=== PATIENT | female | born 1955 | race Caucasian/White ===

== ENCOUNTER → 2018-11-28 | Outpatient (CLI) | payer OTHER ==
--- NOTE | 2018-11-28 09:45 | BD ---
EXAMINATION TYPE: Axial Bone Density DATE OF EXAM: 11/28/2018 COMPARISON: NONE CLINICAL HISTORY: 63 YR OLD FEMALE....ICD-10 CODE: Z78.0 ASYMPTOMATIC MENOPAUSAL STATE Height: 67 Weight: 140 FRAX RISK QUESTIONS: Secondary Osteoporosis: YES 3. Menopause before 45: YES AT 42 Current Tobacco Use: YES RISK FACTORS HISTORY OF: Active: YES Postmenopausal woman: YES AT AGE 42 MEDICATIONS: Additional Medications: REFLUX MEDS, VIT D 3, MULTIVITAMIN, CBD OIL Additional History: NOTHING ADDITIONAL TO NOTE HERE EXAM MEASUREMENTS: Bone mineral densitometry was performed using the [employer] System. Bone mineral density as measured about the Lumbar spine is: ----- L1-L4(G/cm2): 1.071 T Score Values are as follows: ----- L1: -0.7 ----- L2: -1.2 ----- L3: -1.0 ----- L4: -0.9 ----- L1-L4: -0.9 Bone mineral density FIRST BONE DENSITY SCAN.....BASELINE STUDY Bone mineral density about the R hip (g/cm2): 0.828 Bone mineral density about the L hip (g/cm2): 0.839 T Score values are as follows: -----R Neck: -2.2 -----L Neck: -2.1 -----R Total: -1.4 -----L Total: -1.3 Bone mineral density FIRST BONE DENSITY SCAN.....BASELINE STUDY FRAX%s: THERE IS A 11.1% CHANCE FOR A MAJOR OSTEOPOROTIC FX AND A 3.0% FOR HIP.....PROBABILITY OF FX IN 10 YRS TIME IMPRESSION: Osteopenia (T Score between -2.5 and -1) at femoral neck level in both hips. There is slightly increased risk of fracture and the patient may be considered for treatment. Re-Screen 2-5 years. NOTE: T-SCORE=SD OF THE YOUNG ADULT MEAN.
--- NOTE | 2018-11-29 10:51 | MM ---
Reason for exam: screening (asymptomatic). Last mammogram was performed 4 years ago. History: Patient is postmenopausal. Physical Findings: A clinical breast exam by your physician is recommended on an annual basis and results should be correlated with mammographic findings. MG 3D Screening Mammo W/Cad Bilateral CC and MLO view(s) were taken. Prior study comparison: November 23, 2014, bilateral MG screening mammo w CAD. October 02, 2013, bilateral digital screening mammo w/CAD. The breast tissue is heterogeneously dense. This may lower the sensitivity of mammography. Finding #1: There is a 6 mm equal density (isodense), oval mass in the subareolar position of the right breast. Finding #2: There are typically benign calcifications in the right breast. ASSESSMENT: Incomplete: need additional imaging evaluation, BI-RAD 0 RECOMMENDATION: Special view mammogram of the right breast. If lesion persists on supplemental views, image directed ultrasound is recommended. [facility] will attempt to contact patient to return for supplemental views and ultrasound if indicated.
== END | disposition home or self-care (01) ==
LOC: RADMAMWWP 07:56
PROVIDERS: ATTEND Family Medicine
DX: Z12.31 Encounter for screening mammogram for malignant neoplasm of breast (principal); M85.852 Other specified disorders of bone density and structure, left thigh; M85.851 Other specified disorders of bone density and structure, right thigh; Z78.0 Asymptomatic menopausal state
CPT/HCPCS: 77063; 77067; 77080

== ENCOUNTER → 2018-12-11 | Outpatient (CLI) | payer OTHER ==
--- NOTE | 2018-12-11 10:08 | MM ---
Reason for exam: additional evaluation requested from abnormal screening. Last mammogram was performed less than 1 month ago. History: Patient is postmenopausal. Physical Findings: Nurse did not find any significant physical abnormalities on exam. MG 3D Work Up W/Cad RT Spot compression CC, spot compression MLO, and LM view(s) were taken of the right breast. Prior study comparison: November 28, 2018, bilateral MG 3d screening mammo w/cad. November 23, 2014, bilateral MG screening mammo w CAD. The breast tissue is heterogeneously dense. This may lower the sensitivity of mammography. Right asymmetry resolves on additional views and appears as fibroglandular tissue. These results were verbally communicated with the patient and result sheet given to the patient on 12/11/18. ASSESSMENT: Negative, BI-RAD 1 RECOMMENDATION: Return to routine screening mammogram schedule for both breasts.
== END ==
LOC: RADMAMWWP 08:45
PROVIDERS: ATTEND Family Medicine
DX: R92.8 Other abnormal and inconclusive findings on diagnostic imaging of breast (principal)
CPT/HCPCS: 77061; 77065

== ENCOUNTER → 2019-03-04 | Outpatient (CLI) | payer OTHER ==
[2019-03-04 18:09] LABS: Gliadin AB IgA, Unit <0.2 U/mL
== END ==
LOC: LABWHC1 09:41
PROVIDERS: ATTEND Internal Medicine Gastroenterology
DX: K52.9 Noninfective gastroenteritis and colitis, unspecified (principal)
CPT/HCPCS: 36415; 83516; 83630; 87045; 87046; 87324; 87328; 87329

== ENCOUNTER → 2019-04-11 | Day surgery (SDC) | payer OTHER ==
[~2019-04-11] MED LIST: LACTATED RINGERS 1,000 ML IV SCH; LIDOCAINE 1% 20 ML VIAL (10MG/ML) FOR IV START INTRADERMA ONE; PROPOFOL 10 MG/ML 20 ML VIAL IV ONE
[2019-04-11 10:20] VITALS: RESP 16; TEMP 97.7
--- NOTE | 2019-04-11 11:29 | P.PCN ---
Date of Procedure: 04/11/19 Procedure(s) Performed: BRIEF HISTORY: Patient is a 64-year-old pleasant white male, scheduled for an elective colonoscopy as a part of evaluation of chronic diarrhea for the last 6 months duration. She has not was anywhere from 10-12 a day which are loose to watery in consistency with no blood or mucus in the stool. PROCEDURE PERFORMED: Colonoscopy with biopsy. PREOPERATIVE DIAGNOSIS: Chronic diarrhea of 6 months duration. IV sedation per Anesthesia. PROCEDURE: After informed consent was obtained, the patient, was brought into the endoscopy unit. IV sedation was administered by Anesthesia under continuous monitoring. Digital rectal examination was normal. Initially the Olympus CF-160 flexible video colonoscope was then inserted in the rectum, gradually advanced into the cecum without any difficulty. Careful examination was performed as the scope was gradually being withdrawn. Ileocecal valve and the appendiceal orifice were visualized and appeared normal. Prep was excellent. Mucosa of the cecum, ascending colon, transverse colon appeared normal. In the descending colon there was a 2 mm sessile polyp that was removed by cold biopsy. In the sigmoid colon there was 3 mm biopsy polyp that was removed by cold biopsy. Rest of the, descending colon, sigmoid colon, and rectum appeared normal. Retroflexion was performed in the rectum and no lesions were seen. Random biopsies were done from ascending and descending colon to rule out microscopic/collagenous colitis. The patient tolerated the procedure well. IMPRESSION: 2 mm descending colon polyp status post removal by cold biopsy 3 mm of colon polyp status post removal by cold biopsy Rest of the colon appeared normal RECOMMENDATIONS: Findings of this examination were discussed with the patient as well as a family. She was advised to follow with the biopsy results. She will continue with Bentyl 10 mg 4 times daily and she'll be seen in office in 2- 3 weeks.
[2019-04-11 11:47] VITALS: BP 157/78; PULSE 53
== END ==
LOC: ORWHC2ENDO 09:40
PROVIDERS: ATTEND Internal Medicine Gastroenterology
DX: D12.4 Benign neoplasm of descending colon (principal); K52.839 Microscopic colitis, unspecified; K52.9 Noninfective gastroenteritis and colitis, unspecified; K21.9 Gastro-esophageal reflux disease without esophagitis; F17.210 Nicotine dependence, cigarettes, uncomplicated; Z79.899 Other long term (current) drug therapy
CPT/HCPCS: 45380; 88305; J2704

== ENCOUNTER → 2021-04-26 | Outpatient (CLI) | payer OTHER ==
--- NOTE | 2021-04-26 12:57 | BD ---
EXAMINATION TYPE: Axial Bone Density DATE OF EXAM: 04/26/2021 COMPARISON: 11.28.2018 CLINICAL HISTORY: 66 YR OLD FEMALE.....ICD-10 CODE: Z78.0 MENOPAUSAL STATE Height: 66.2 Weight: 146 FRAX RISK QUESTIONS: Current Tobacco Use: YES RISK FACTORS HISTORY OF: Postmenopausal woman: YES, AT AGE 49 YRS OLD Hyperparathyroidism: NO Adrenal Insufficiency: NO MEDICATIONS: Additional Medications: NOTHING TO NOTE HERE Additional History: NOTHING ADDITIONAL TO ADD HERE EXAM MEASUREMENTS: Bone mineral densitometry was performed using the [employer] System. Bone mineral density as measured about the Lumbar spine is: ----- L1-L4(G/cm2): 1.127 T Score Values are as follows: ----- L1: -0.2 ----- L2: -0.9 ----- L3: -0.7 ----- L4: -0.2 ----- L1-L4: -0.4 Bone mineral density has: Increased 5.0% since study of: 11.28.2018 Bone mineral density about the R hip (g/cm2): 0.826 Bone mineral density about the L hip (g/cm2): 0.836 T Score values are as follows: -----R Neck: -2.0 -----L Neck: -2.0 -----R Total: -1.4 -----L Total: -1.4 Bone mineral density has: Decreased -0.4% since study of: 11.28.2018 FRAX%s: THERE IS A 11.3% CHANCE FOR A MAJOR OSTEOPOROTIC FX AND A 3.0% FOR HIP......PROBABILITY FO R FX IN 10 YRS TIME IMPRESSION: Osteopenia lumbar spine NOTE: T-SCORE=SD OF THE YOUNG ADULT MEAN.
--- NOTE | 2021-04-28 11:25 | MM ---
Reason for exam: screening (asymptomatic). Last mammogram was performed 2 years and 4 months ago. History: Patient is postmenopausal. Physical Findings: A clinical breast exam by your physician is recommended on an annual basis and results should be correlated with mammographic findings. MG 3D Screening Mammo W/Cad Bilateral CC and MLO view(s) were taken. Prior study comparison: November 28, 2018, bilateral MG 3d screening mammo w/cad. November 23, 2014, bilateral MG screening mammo w CAD. The breast tissue is heterogeneously dense. This may lower the sensitivity of mammography. No significant changes when compared with prior studies. ASSESSMENT: Benign, BI-RAD 2 RECOMMENDATION: Routine screening mammogram of both breasts in 1 year.
== END | disposition home or self-care (01) ==
LOC: RADMAMWWP 07:21
PROVIDERS: ATTEND Family Medicine
DX: Z12.31 Encounter for screening mammogram for malignant neoplasm of breast (principal); Z78.0 Asymptomatic menopausal state; M85.88 Other specified disorders of bone density and structure, other site
CPT/HCPCS: 77063; 77067; 77080

== ENCOUNTER 2022-03-11 13:34 | Emergency (ER) | payer OTHER, MEDICARE ==
[2022-03-11 14:30] VITALS: RESP 18
[2022-03-11] MEDS ORDERED: KETOROLAC 15 MG/ML 1 ML VIAL IVP STA (14:34)
[2022-03-11] MEDS ORDERED: SODIUM CHLORIDE 0.9% 1,000 ML IV STA (14:34)
[2022-03-11] MEDS ORDERED: DEXAMETHASONE SOD PHOSPHATE 10 MG/ML 1 ML VIAL IVP STA (14:37)
[2022-03-11 15:01] LABS: Basophils # (A) 0.1 k/uL (0-0.2); Basophils % (A) 1 %; Eosinophils # (A) 0.2 k/uL (0-0.7); Eosinophils % (A) 2 %; HCT 43.4 % (34.0-46.0); HGB 13.6 gm/dL (11.4-16.0); Lymphocytes # (A) 1.1 k/uL (1.0-4.8); Lymphocytes % (A) 14 %; MCH 30.8 pg (25.0-35.0); MCHC 31.3 g/dL (31.0-37.0); MCV 98.2 fL (80.0-100.0); Monocytes # (A) 0.4 k/uL (0-1.0); Monocytes % (A) 5 %; Neutrophils # (A) 6.5 k/uL (1.3-7.7); Neutrophils % (A) 78 %; Platelet Count 243 k/uL (150-450); RBC 4.42 m/uL (3.80-5.40); WBC 8.4 k/uL (3.8-10.6)
[2022-03-11 15:11] LABS: Appearance,Urine Cloudy (Clear); Bilirubin,Urine Negative (Negative); Blood,Urine Trace (Negative); Color,Urine Yellow; Glucose,Urine (UA) Negative (Negative); Hyaline Casts,Urine 7 /lpf (0-2); Ketones,Urine 1+ (Negative); Leukocyte Esterase,Urine Small (Negative); Mucus,Urine Few /hpf; Nitrite,Urine Negative (Negative); Protein,Urine Trace (Negative); RBC,Urine 3 /hpf (0-5); Specific Gravity,Urine 1.016 (1.001-1.035); Squamous Epithelial Cell,Urine 1 /hpf (0-4); Urobilinogen,Urine <2.0 mg/dL (<2.0); WBC,Urine 9 /hpf (0-5)
[2022-03-11 15:16] LABS: C Reactive Protein 5.3 mg/dL (<1.0); Magnesium 1.9 mg/dL (1.6-2.3)
--- NOTE | 2022-03-11 15:54 | ED ---
General Adult HPI - General Chief complaint: Chest Pain Stated complaint: Not feeling well/pain/rash Time Seen by Provider: 03/11/22 14:15 Source: patient, RN notes reviewed, old records reviewed Mode of arrival: wheelchair Limitations: no limitations - History of Present Illness Initial comments: Patient is a 67-year-old female with past medical history remarkable for psoriasis, acid reflex who presents emergency Department stating that she has had a fever as well as a new-onset rash over the last 7 days since she started taking nasal spray as well as antibiotic prescribed by her ENT. States her T- max was 99F. Describes the rash as somewhat painful and itchy. Located a spot over her chest, bilateral thumbs, as well as a small part on her right upper back. Denies any known ALLERGIES. States that she is also notes worsening joint pain over that period of time. Particularly in her hips. She also has some joint pain in her lower back. No recent trauma. No saddle anesthesias. No urinary or bowel incontinence or retention. Denies any chest pain, shortness of breath, abdominal pain, nausea, vomiting. Denies any fevers known sick c ontacts. Percents for further evaluation. Does have a history of meningitis, and patient's and patient were consented regarding this and wanted her to be evaluated. Has no confusion. Pain with ambulation at the hips. - Related Data Home Medications Medication Instructions Recorded Confirmed Calcium Carbonate [Calcium] 1,200 mg PO DAILY 04/08/19 04/08/19 Cholecalciferol (Vitamin D3) 10,000 unit PO DAILY 04/08/19 04/08/19 [Vitamin D3] Cider Vinegar [Apple Cider Vinegar] 1 tab PO DAILY PRN 04/08/19 04/08/19 Clobetasol Propionate [Clobex 1 dose TOPICAL DIRECTED PRN 04/08/19 04/08/19 [place] 0.05%] Dicyclomine [Bentyl] 10 mg PO QID 04/08/19 04/08/19 Halobetasol Propionate [Ultravate 1 dose TOPICAL DIRECTED PRN 04/08/19 04/08/19 0.05%] Loperamide [Imodium] 2 mg PO DAILY PRN 04/08/19 04/08/19 Loratadine 10 mg PO QAM 04/08/19 04/08/19 Multivitamins, Thera [Multivitamin 1 tab PO DAILY 04/08/19 04/08/19 (formulary)] Ranitidine HCl [Zantac] 150 mg PO BID 04/08/19 04/08/19 Sertraline HCl [Zoloft] 100 mg PO QAM 04/08/19 04/08/19 Vitamin C/Biotin [Hair, Skin and 1 tab PO DAILY 04/08/19 04/08/19 Nails] Previous Rx's Medication Instructions Recorded predniSONE [Deltasone] 40 mg PO DAILY 5 Days #10 tab 03/11/22 Allergies Allergy/AdvReac Type Severity Reaction Status Date / Time No Known Allergies Allergy Verified 03/11/22 13:56 Review of Systems ROS Statement: Those systems with pertinent positive or pertinent negative responses have been documented in the HPI. Review of Systems: CONST: Denies fever EYES: Denies blurry vision ENT: Denies nasal congestion C/V: Denies Chest pain RESP: Denies shortness of breath GI: Denies abdominal pain : Denies dysuria SKIN: Endorses nonspecific rash. MSK: Diffuse joint pain, particularly lower back and hips. NEURO: Denies headache ROS Other: All systems not noted in ROS Statement are negative. Past Medical History Past Medical History: GERD/Reflux Additional Past Medical History / Comment(s): CHRONIC DIARRHEA, IBS., Meningitis History of Any Multi-Drug Resistant Organisms: None Reported Additional Past Surgical History / Comment(s): CERVICAL SURGERY. Past Anesthesia/Blood Transfusion Reactions: No Reported Reaction Past Psychological History: Depression Smoking Status: Current every day smoker Past Alcohol Use History: Occasional Past Drug Use History: None Reported General Exam - General Exam Comments Initial Comments: General: Appears in no acute distress. HEAD: Normal with no signs of head trauma. EYES: PERRLA, EOMI, conjunctiva normal, no discharge. ENT: Hearing grossly intact, normal oropharynx. Moist mucous membranes. RESPIRATORY: Clear breath sounds bilaterally. No wheezes, rales, or rhonchi. C/V: Regular rate and rhythm. S1 and S2 auscultated, no edema, peripheral pulses 2+ and intact throughout ABD: Abd is soft, nontender, nondistended EXT: Normal range of motion, no obvious deformity. Patient has no midline cervical, thoracic, lumbar spine tenderness palpation. Paraspinal lumbar spine muscle tenderness palpation. No obvious hip tenderness to palpation. Pelvis is stable. No nuchal rigidity. Skin: Patient has small erythematous patches located over her bilateral first MTP joint as well as a small macular/erythematous patch located over the upper right chest and a small patch located over the inferior aspect of the posterior right chest. Does not follow a dermatomal distribution. Does not appear to be shingles. Looks psoriatic in nature. No fluctuance or edema. No discharge. NEURO: Alert and oriented 4. No focal deficits. Limitations: no limitations Course Vital Signs 03/11/22 03/11/22 03/11/22 13:51 14:27 16:19 Temperature 98.5 F 98.8 F Pulse Rate 79 75 68 Respiratory 16 18 18 Rate Blood Pressure 128/80 162/77 O2 Sat by Pulse 95 98 Oximetry Medical Decision Making - Medical Decision Making Based on the patient's presentation and physical exam, I low suspicion for meningitis at this time. Mental status is within normal limits. Symptoms appe ar to be mostly in the paraspinal muscles of the lumbar spine as well as bilateral hips. Rash is nonspecific. However we will obtain basic laboratory studies to look for acute infectious process. She was complaining of a mild headache at this time and she'll be given IV fluids and Toradol. She was in agreement with this plan. Screening EKG was obtained in triage and was unremarkable. Laboratory studies were unremarkable. Vital signs remain within normal limits and stable throughout her stay. I discussed the findings with the patient. She is feeling somewhat improved following her treatments. She'll be started on steroids over the next few days and we will have her discontinue her home medications at this time. Strict return precautions were provided. There were any agreement this plan. I will provide the patient with a prescription for prednisone. I instructed the patient to follow up with their PCP in the next 3 days. I explained that the patient should return to the emergency department if they experience any worsening symptoms. Strict return precautions were discussed with the patient. The patient expressed understanding of these instructions. I answered all questions that the patient had. The patient was discharged home in good condition with their prescriptions and follow up information. - Lab Data Result diagrams: 03/11/22 14:57 03/11/22 14:57 Lab Results 03/11/22 03/11/22 03/11/22 Range/Units 14:57 14:57 14:58 WBC 8.4 (3.8-10.6) k/uL RBC 4.42 (3.80-5.40) m/uL Hgb 13.6 (11.4-16.0) gm/dL Hct 43.4 (34.0-46.0) % MCV 98.2 (80.0-100.0) fL MCH 30.8 (25.0-35.0) pg MCHC 31.3 (31.0-37.0) g/dL RDW 12.0 (11.5-15.5) % Plt Count 243 (150-450) k/uL MPV 8.0 Neutrophils % 78 % Lymphocytes % 14 % Monocytes % 5 % Eosinophils % 2 % Basophils % 1 % Neutrophils # 6.5 (1.3-7.7) k/uL Lymphocytes # 1.1 (1.0-4.8) k/uL Monocytes # 0.4 (0-1.0) k/uL Eosinophils # 0.2 (0-0.7) k/uL Basophils # 0.1 (0-0.2) k/uL Sodium 135 L (137-145) mmol/L Potassium 4.0 (3.5-5.1) mmol/L Chloride 101 (98-107) mmol/L Carbon Dioxide 26 (22-30) mmol/L Anion Gap 8 mmol/L BUN 11 (7-17) mg/dL Creatinine 0.87 (0.52-1.04) mg/dL Est GFR (CKD-EPI)AfAm 80 (>60 ml/min/1.73 sqM) Est GFR (CKD-EPI)NonAf 69 (>60 ml/min/1.73 sqM) Glucose 110 H (74-99) mg/dL Calcium 9.0 (8.4-10.2) mg/dL Magnesium 1.9 (1.6-2.3) mg/dL C-Reactive Protein 5.3 H (<1.0) mg/dL Urine Color Yellow Urine Appearance Cloudy H (Clear) Urine pH 6.0 (5.0-8.0) Ur Specific Gray 1.016 (1.001-1.035) Urine Protein Trace H (Negative) Urine Glucose (UA) Negative (Negative) Urine Ketones 1+ H (Negative) Urine Blood Trace H (Negative) Urine Nitrite Negative (Negative) Urine Bilirubin Negative (Negative) Urine Urobilinogen <2.0 (<2.0) mg/dL Ur Leukocyte Esterase Small H (Negative) Urine RBC 3 (0-5) /hpf Urine WBC 9 H (0-5) /hpf Ur Squamous Epith Cells 1 (0-4) /hpf Hyaline Casts 7 H (0-2) /lpf Urine Mucus Few H (None) /hpf - EKG Data -: EKG Interpreted by Me EKG Comments: 12-lead Electrocardiogram Interpretation Note EKG was reviewed and interpreted by myself. 12-lead ECG performed at 1412 is interpreted by me as revealing normal sinus rhythm at a rate of 34 beats per minute. [place] is normal. DC interval is 109 ms, QRS duration is 89 ms, QTc is 420 ms. There were no ST or T wave abnormalities to suggest myocardial ischemia or injury. R wave progression across the precordium was satisfactory. By my interpretation this EKG is non-diagnostic for acute ischemia. Disposition Clinical Impression: Rash, Psoriasis, Arthralgia Disposition: HOME SELF-CARE Condition: Good Instructions (If sedation given, give patient instructions): Acute Rash (ED) Prescriptions: predniSONE [Deltasone] 40 mg PO DAILY 5 Days #10 tab Is patient prescribed a controlled substance at d/c from ED?: No Referrals: Galo Aquino MD [Primary Care Provider] - 1-2 days Time of Disposition: 15:40
[2022-03-11 16:21] VITALS: BP 162/77; PULSE 68; TEMP 98.8
== END 2022-03-11 16:21 | disposition home or self-care (01) ==
LOC: EC 13:34
DX: L40.9 Psoriasis, unspecified (principal); M25.50 Pain in unspecified joint; F17.200 Nicotine dependence, unspecified, uncomplicated
CPT/HCPCS: 36415; 93005; 80048; 83735; 85025; 86140; 81001; 99285; 96374; 96375; 96361; J1100; J1885

== ENCOUNTER → 2022-05-26 | Outpatient (CLI) | payer OTHER, MEDICARE ==
--- NOTE | 2022-05-29 08:29 | MM ---
Reason for Exam: Screening (asymptomatic). Last mammogram was performed 1 year(s) and 1 month(s) ago. Patient History: Menarche at age 12. First Full-Term at age 18. Postmenopausal. Risk Values: Fidelia 5 year model risk: 1.2%. NCI Lifetime model risk: 4.2%. Prior Study Comparison: 11/28/2018 Bilateral Screening Mammogram, [facility]. 12/11/2018 Right Diagnostic Mammogram, [facility]. 04/26/2021 Bilateral Screening Mammogram, [facility]. Tissue Density: The breast tissue is heterogeneously dense. This may lower the sensitivity of mammography. Findings: Analyzed By CAD. There is no suspicious group of microcalcifications or new suspicious mass in either breast. Overall Assessment: Negative, BI-RAD 1 Management: Screening Mammogram of both breasts in 1 year. A clinical breast exam by your physician is recommended on an annual basis and results should be correlated with mammographic findings. Electronically signed and approved by: Luke Rivera DO
== END | disposition home or self-care (01) ==
LOC: RADMAMWWP 11:30
PROVIDERS: ATTEND Family Medicine
DX: Z12.31 Encounter for screening mammogram for malignant neoplasm of breast (principal); Z78.0 Asymptomatic menopausal state
CPT/HCPCS: 77063; 77067

== ENCOUNTER → 2023-06-05 | Outpatient (CLI) | payer OTHER, MEDICARE ==
--- NOTE | 2023-06-08 19:29 | US ---
EXAMINATION TYPE: US Aorta Screening DATE OF EXAM: 06/05/2023 COMPARISON: NONE CLINICAL INDICATION: Female, 68 years old with history of Z13.6 ENCOUNTER FOR SCREENING FOR CARDIOVAS CULAR DISORDERS; MEDICARE SCREENING TECHNIQUE: Multiple sonographic images of the abdominal aorta are obtained. FINDINGS: EXAM MEASUREMENTS: Abdominal Aorta: Proximal: 2.1X2.1 CM Mid: 1.8X1.8 CM Distal: 1.7X1.7 CM Bifurcation: RT MORENA: 1.3X0.9 CM LT MORENA: 1.3X1.2CM [employer] NOTES: NO EVIDENCE OF AAA IMPRESSION: No sonographic evidence for AAA.
== END | disposition home or self-care (01) ==
LOC: RADUSWWP 08:43
PROVIDERS: ATTEND Family Medicine
DX: Z13.6 Encounter for screening for cardiovascular disorders (principal)
CPT/HCPCS: 76706

== ENCOUNTER → 2024-07-24 | Outpatient (CLI) | payer OTHER, MEDICARE ==
--- NOTE | 2024-07-28 14:34 | MM ---
Reason for Exam: Screening (asymptomatic). Last mammogram was performed 1 year(s) and 1 month(s) ago. Patient History: Menarche at age 12. First Full-Term at age 18. Postmenopausal. Risk Values: Fidelia 5 year model risk: 1.2%. NCI Lifetime model risk: 3.9%. Prior Study Comparison: 04/26/2021 Bilateral Screening Mammogram, [facility]. 05/26/2022 Bilateral MG 3D screening mammo w/cad, [facility]. 06/27/2023 Bilateral MG 3D screening mammo w/cad, [facility]. Tissue Density: The breasts are heterogeneously dense, which may obscure small masses. Findings: Analyzed By CAD. Right breast: There is no suspicious group of microcalcifications or new suspicious mass. Left breast: There is no suspicious group of microcalcifications or new suspicious mass. Overall Assessment: Negative, BI-RAD 1 Management: Screening Mammogram of both breasts in [address] [facility] will attempt to contact patient to return for supplemental views and ultrasound if indicated. Patient should continue monthly self-breast exams. A clinical breast exam by your physician is recommended on an annual basis. This exam should not preclude additional follow-up of suspicious palpable abnormalities. Note on Fidelia scores and lifetime risk: 1. A Fidelia score greater than 3% is considered moderate risk. If this is the case, consider specialist referral to assess eligibility for a risk reducing agent. 2. If overall lifetime risk for the development of breast cancer is 20% or higher, the patient may qualify for future screening with alternating mammogram and breast MRI. [facility], , 07/28/2024 2:31 PM. Electronically signed and approved by: Luke Rivera DO
== END | disposition home or self-care (01) ==
LOC: RADMAMWWP 15:12
PROVIDERS: ATTEND Family Medicine
CPT/HCPCS: 77063; 77067